=== PATIENT | female | born 1970 | race Two or more races ===

== ENCOUNTER 2022-02-06 05:02 | Emergency (ER) | payer MEDICARE, OTHER ==
[~2022-02-06] VITALS: Ht 157.5 cm; Wt 45.4 kg
[2022-02-06] MEDS ORDERED: CALCIUM CHLOR(10%) 100MG/ML 10ML SYRINGE IV ONE (05:03)
[2022-02-06] MEDS ORDERED: SODIUM BICARBONATE 8.4% INJ 50ML SYRINGE IV ONE (05:03)
[2022-02-06] MEDS ORDERED: MAGNESIUM SULF 50% 40 MEQ/10 ML VL IV ONE (05:03)
[2022-02-06] MEDS ORDERED: EPINEPHrine HCL 1 MG/10 ML SYRG IV ONE (05:03)
== END 2022-02-06 11:12 ==
LOC: ER 05:02 → EDBD 05:02 → ER 11:12
DX: I46.9 Cardiac arrest, cause unspecified (principal); I12.0 Hypertensive chronic kidney disease with stage 5 chronic kidney disease or end stage renal disease; N18.6 End stage renal disease
CPT/HCPCS: 92950; 99285; J0171; J3475